=== PATIENT | female | born 1950 ===

== ENCOUNTER 2018-06-10 14:48 | Emergency (ER) | payer MEDICARE ==
[~2018-06-10] VITALS: Ht 157.5 cm; Wt 65.9 kg
[2018-06-10 14:53] VITALS: Ht 157.5 cm; Wt 65.9 kg
[2018-06-10] MEDS ORDERED: METOPROLOL TART50 MG PO (14:55)
[2018-06-10] MEDS ORDERED: MS CONTIN30 MG PO (14:55)
[2018-06-10] MEDS ORDERED: LIPITOR20 MG PO (14:56)
[2018-06-10] MEDS ORDERED: LISINOPRIL10 MG PO (14:56)
[2018-06-10] MEDS ORDERED: PROPRANOLOL HCL20 MG PO (14:56)
[2018-06-10] MEDS ORDERED: XANAX1 MG PO (14:57)
[2018-06-10] MEDS ORDERED: ZOLOFT100 MG PO (14:57)
[2018-06-10 21:34] LABS: APTT 24.5 SECONDS (22.8-39.4); INR 1.04 (0.85-1.17); PROTIME 13.1 SECONDS (11.6-15.0)
[2018-06-10 21:38] LABS: BASOPHILS 0.2 % (0-2); EOSINOPHILS 0 % (0-7); HEMATOCRIT 39.2 % (36.0-48.0); HEMOGLOBIN 13.2 g/dL (12-16); IMMATURE GRANULOCYTES 0.2 % (0-5); LYMPHOCYTES 33.6 % (15-50); MCH 31.3 pg (26.0-34.0); MCHC 33.7 g/dL (31.0-37.0); MCV 92.9 fL (80.0-100.0); MEAN PLATELET VOLUME 9.5 fL (7.4-10.4); MONOCYTES 8.8 % (2-11); NEUTROPHILS 57.2 % (40-80); PLATELET COUNT 375 10x3/uL (130-400); RBC 4.22 10x6/uL (4.00-5.40); RDW 13.4 % (11.5-14.5); WBC 9.3 10x3/uL (4.8-10.8)
[2018-06-10 21:41] LABS: ALBUMIN 3.8 g/dL (3.4-5.0); ALKALINE PHOSPHATASE 107 U/L (46-116); ALT (SGPT) 11 U/L (10-68); BILIRUBIN - TOTAL 0.21 mg/dL (0.2-1.3); CALC OSMOLALITY 275 mosm/kg (275-300); CARBON DIOXIDE 23.8 mmol/L (21.0-32.0); CHLORIDE - SERUM 102 mmol/L (98-107); CREATININE - SERUM 0.8 mg/dL (0.6-1.3); GLUCOSE 104 mg/dL (74-106); POTASSIUM - SERUM 3.4 mmol/L (3.5-5.1); PROTEIN - SERUM 7.7 g/dL (6.4-8.2); SODIUM 138 mmol/L (136-145); UREA NITROGEN 13 mg/dL (7-18); eGFR NON AFRICAN AMERICAN 76 mL/min (90-120)
[2018-06-10 21:51] LABS: CKMB 0.4 U/L (0.0-3.6); CREATINE KINASE 45 UL (21-215); MAGNESIUM - SERUM 1.6 mg/dL (1.8-2.4)
[2018-06-10 21:54] LABS: TROPONIN-I < 0.017 ng/mL (0.000-0.060)
[2018-06-11] MEDS ORDERED: ACETAMINOPHEN500 M1 PO (02:59)
[2018-06-11] MEDS ORDERED: CYCLOBENZAPRINE10 MG PO (02:59)
[2018-06-11] MEDS ORDERED: IBUPROFEN800 MG PO (02:59)
[2018-06-11] MEDS ORDERED: ZESTORETIC 20-1 EACH PO (02:59)
[2018-06-11 03:38] VITALS: BP 169/77
== END 2018-06-11 03:38 | disposition home or self-care (01) ==
LOC: D.ER 14:48
PROVIDERS: Family Medicine
DX: Z76.5 Malingerer [conscious simulation] (principal); M54.2 Cervicalgia; Z91.19 Patient's noncompliance with other medical treatment and regimen; I10 Essential (primary) hypertension; Y04.2XXA Assault by strike against or bumped into by another person, initial encounter; Y93.89 Activity, other specified; Y92.019 Unspecified place in single-family (private) house as the place of occurrence of the external cause; E11.9 Type 2 diabetes mellitus without complications